=== PATIENT | male | born 1980 | race Caucasian/White ===

== ENCOUNTER 2017-02-13 00:07 | Emergency (ER) | payer OTHER ==
[~2017-02-13] VITALS: Ht 182.9 cm; Wt 83.9 kg
[2017-02-13] MEDS ORDERED: NKM (00:17)
[2017-02-13 00:36] VITALS: BP 150/95
[2017-02-13] MEDS ORDERED: Bupivacaine 0.25% Inj 30ml INJ ONE (00:45)
--- NOTE | 2017-02-13 02:08 | Emergency Room Report ---
History of Present Illness General Chief Complaint: Pain Source: Patient Present Illness HPI Patient stubbed his little toe earlier. He tried to put it back, but it was too painful. Pain 7/10, worse when dependent. Radiates somewhat to foot. No numbness. HTN. Denies somatic complaints. Allergies: Coded Allergies: No Known Allergies (Unverified , 02/13/17) Patient History Past Medical History: see triage record Social History: Reports: smoking - former Social History Narrative Reviewed Nursing Documentation: PMH: Agreed, PSxH: Agreed Nursing Documentation-PMH Hx Hypertension: Yes Review of Systems All Other Systems: negative except mentioned in HPI Physical Exam Vital Signs Date Time Temp Pulse Resp B/P Pulse Ox O2 Delivery O2 Flow Rate FiO2 02/13/17 00:12 98.2 100 18 150/95 97 Room Air Sp02 EP Interpretation: reviewed, normal General Appearance: well appearing, no apparent distress, GCS 15 Head: normocephalic, atraumatic Eyes: bilateral eye PERRL, bilateral eye normal inspection ENT: hearing grossly normal, normal voice, moist mucus membranes Neck: full range of motion, supple Respiratory: no respiratory distress, speaking full sentences Musculoskeletal: decreased range of mation - little toe, though able to wiggle , other - L little toe is defored laterally Neurologic: alert, sensory intact - distal toe sensation intact, normal gait Psychiatric: mood/affect normal Skin: no rash Procedures Additional Procedure Procedure Narrative Anatomic alignment of little toe: Betadiene, digital block with lidocaine 4 ml. Alignment more anatomic and tracy taped to 4th toe. Tolerated well. Medical Decision Making Diagnostic Impression: Primary Impression: Toe fracture, left Qualified Codes: S92.522A - Displaced fracture of medial phalanx of left lesser toe(s), initial encounter for closed fracture ER Course Patient post stubbing toe, now at angle. DDx: fx, dislocation, contusion. By position, fracture highly suspect. Xray ordered as well as bupivacaine. Xray with fracture = spiral and angulation/displacement. Digital block and splinting by me. Position greatly improved. Vascular intact , but digital block present. Discussed need for further care with certification and selection specialist. Patient stable for outpatient observation and treatment. Last Vital Signs Date Time Temp Pulse Resp B/P Pulse Ox O2 Delivery O2 Flow Rate FiO2 02/13/17 02:20 98.2 76 18 150/95 97 Room Air Status: improved Disposition: HOME, SELF-CARE Condition: Improved Scripts Tramadol Hcl* (ULTRAM*) 50 Mg Tablet 50 MG ORAL Q6H Y for For Pain, #10 TAB 0 Refills Prov: Ag Gallego M.D. 02/13/17 Ibuprofen* (MOTRIN*) 600 Mg Tablet 600 MG ORAL Q6H Y for For Pain, #20 TAB Prov: Ag Gallego M.D. 02/13/17 Referrals: NOT CHOSEN JUAN/,REFERRING (PCP) Ag Gallego M.D. Feb 13, 2017 02:08
[2017-02-13] MEDS ORDERED: IBUPROFEN600 MG ORAL (02:11)
[2017-02-13] MEDS ORDERED: TRAMADOL HCL50 MG ORAL (02:11)
[2017-02-13 02:20] VITALS: BP 150/95
--- NOTE | 2017-02-13 09:12 | Diagnostic Imaging Report ---
Indication: Left foot trauma/pain Technique: XRAY FOOT MIN 3V LEFT Comparison: None Findings: There is an obliquely oriented and displaced fracture of the fifth proximal phalanx. Soft tissue swelling is noted. Impression: Acute obliquely oriented nondisplaced fracture of the fifth proximal phalanx.
== END 2017-02-13 02:15 | disposition home or self-care (01) ==
LOC: EMR 01:00
DX: S92.522A Displaced fracture of middle phalanx of left lesser toe(s), initial encounter for closed fracture (principal); W22.03XA Walked into furniture, initial encounter; Y92.009 Unspecified place in unspecified non-institutional (private) residence as the place of occurrence of the external cause; I10 Essential (primary) hypertension